=== PATIENT | male | born 1950 | race Caucasian/White ===

== ENCOUNTER 2020-08-20 16:01 | Inpatient (IN) ==
[2020-08-20] MEDS ORDERED: D5% in Water 1,000 ML IVC PRN (21:07)
[2020-08-20] MEDS ORDERED: *HR* Dextrose 50 % in Water (Vial) 50 ML VIAL IVP PRN (21:07)
[2020-08-20] MEDS ORDERED: Dextrose Gel 15 GM/37.5 ML TUBE PO PRN ×2 (21:07)
[2020-08-20] MEDS: Budesonide/Formoterol 160/4.5 1 PUFF INH IH SCH (21:49)
[2020-08-21] MEDS: Ascorbic Acid 500 MG TABLET PO SCH (08:58)
[2020-08-21] MEDS: Aspirin 325 MG TABLET PO SCH (08:58)
[2020-08-21] MEDS: *HR* Metformin 500 MG TABLET PO SCH ×2 (08:58→21:45)
[2020-08-21] MEDS: Vitamin E 200 UNIT (90MG) CAPSULE PO SCH (08:58)
[2020-08-21] MEDS: lisinopriL 20 MG TABLET PO SCH (08:58)
[2020-08-21] MEDS ORDERED: Dexamethasone 4 MG/ML VIAL PO SCH (09:00)
[2020-08-21] MEDS: (Pirfenidone [Esbriet] 801 MG) PO SCH ×3 (09:15→21:44)
[2020-08-21] MEDS: Budesonide/Formoterol 160/4.5 1 PUFF INH IH SCH ×2 (10:01→20:22)
[2020-08-21] MEDS: Tiotropium 10 INH DOSE IH SCH (10:01)
[2020-08-21 11:17] LABS: Hematocrit 38.2 % (37.5-50.1); Hemoglobin 12.7 g/dL (12.9-16.9); Mean Corpuscular HGB Conc 33.2 g/dL (31.6-35.5); Mean Corpuscular Hemoglobin 29.1 pg (28.0-33.3); Mean Corpuscular Volume 87.4 fL (83.0-100.0); Mean Platelet Volume 9.5 fL (9.4-12.4); Platelet Count 182 K/mcL (140-400); Red Blood Count 4.37 M/mcL (4.19-5.50); Red Cell Distribution Width 14.4 % (11.5-14.5); White Blood Count 5.7 K/mcL (4.3-11.1)
[2020-08-21 11:58] LABS: Alanine Aminotransferase 44 Units/L (7-52); Albumin 3.8 g/dL (3.5-5.7); Albumin/Globulin Ratio 1.2 (1.1-2.2); Alkaline Phosphatase 81 Units/L (34-104); Aspartate Amino Transferase 40 Units/L (13-39); BUN/Creatinine Ratio 26 (6-26); Bilirubin,Total 0.6 mg/dL (0.3-1.0); Blood Urea Nitrogen 30 mg/dL (8-23); Calcium 8.7 mg/dL (8.6-10.3); Carbon Dioxide 25 mEq/L (23-29); Chloride 96 mEq/L (98-107); Globulin 3.1 g/dL (2.4-3.5); Glucose 265 mg/dL (70-105); Magnesium 1.7 mg/dL (1.6-2.6); Osmolality,Calculated 291 (280-300); Potassium 3.7 mEq/L (3.5-5.1); Sodium 133 mEq/L (136-145); Total Protein 6.9 g/dL (6.4-8.9); eGFR For African Americans > 60 (> 60); eGFR For Non-African Americans > 60 (> 60)
[2020-08-21] MEDS: Insulin DETEMIR 100 UNIT/ML X5UNITS SUBQ SCH (18:20)
[2020-08-21 19:45] LABS: C-Reactive Protein 30 mg/L (Less than 10)
[2020-08-21 19:59] LABS: Ferritin 936 ng/mL (20-250)
[2020-08-21] MEDS ORDERED: D5% in Water 1,000 ML IVC PRN (22:45)
[2020-08-21] MEDS ORDERED: *HR* Dextrose 50 % in Water (Vial) 50 ML VIAL IVP PRN (22:45)
[2020-08-21] MEDS: levoFLOXacin 750 MG/150 ML 750 MG/150 ML BAG IVPB SCH (23:55)
[2020-08-22] MEDS ORDERED: Ondansetron 4 MG/2 ML VIAL IVP PRN (01:43)
[2020-08-22] MEDS: *HR* Enoxaparin 40 MG/0.4 ML SYRINGE SQ SCH (06:25)
[2020-08-22 06:40] LABS: Hematocrit 37.3 % (37.5-50.1); Hemoglobin 12.4 g/dL (12.9-16.9); Mean Corpuscular HGB Conc 33.2 g/dL (31.6-35.5); Mean Corpuscular Hemoglobin 28.8 pg (28.0-33.3); Mean Corpuscular Volume 86.7 fL (83.0-100.0); Mean Platelet Volume 9.6 fL (9.4-12.4); Platelet Count 182 K/mcL (140-400); Red Cell Distribution Width 14.4 % (11.5-14.5); White Blood Count 5.7 K/mcL (4.3-11.1)
[2020-08-22 06:53] LABS: BUN/Creatinine Ratio 35 (6-26); Blood Urea Nitrogen 35 mg/dL (8-23); Calcium 8.9 mg/dL (8.6-10.3); Carbon Dioxide 27 mEq/L (23-29); Chloride 97 mEq/L (98-107); Glucose 149 mg/dL (70-105); Magnesium 1.7 mg/dL (1.6-2.6); Osmolality,Calculated 289 (280-300); Potassium 3.4 mEq/L (3.5-5.1); Sodium 134 mEq/L (136-145); eGFR For African Americans > 60 (> 60); eGFR For Non-African Americans > 60 (> 60)
[2020-08-22 08:22] LABS: Ferritin 850 ng/mL (20-250)
[2020-08-22] MEDS: Vitamin E 200 UNIT (90MG) CAPSULE PO SCH (08:37)
[2020-08-22] MEDS: *HR* Metformin 500 MG TABLET PO SCH (08:37)
[2020-08-22] MEDS: Aspirin 325 MG TABLET PO SCH (08:37)
[2020-08-22] MEDS: lisinopriL 20 MG TABLET PO SCH (08:37)
[2020-08-22] MEDS: Ascorbic Acid 500 MG TABLET PO SCH (08:37)
[2020-08-22] MEDS: Dexamethasone Sodium Phos/PF 10 MG/ML VIAL IVP SCH (08:38)
[2020-08-22] MEDS: Furosemide 20 MG/2 ML VIAL IVP SCH ×2 (08:39→21:24)
[2020-08-22] MEDS: Insulin LISPRO 300 UNITS/3 ML VIAL SUBQ SCH ×4 (08:39→21:24)
[2020-08-22] MEDS: (Pirfenidone [Esbriet] 801 MG) PO SCH ×3 (08:41→21:26)
[2020-08-22 09:00] LABS: C-Reactive Protein 27 mg/L (Less than 10)
[2020-08-22] MEDS: Tiotropium 10 INH DOSE IH SCH (10:10)
[2020-08-22] MEDS: Budesonide/Formoterol 160/4.5 1 PUFF INH IH SCH ×2 (10:12→18:47)
[2020-08-22] MEDS: levoFLOXacin 750 MG/150 ML 750 MG/150 ML BAG IVPB SCH (17:00)
[2020-08-22] MEDS: Insulin DETEMIR 100 UNIT/ML X5UNITS SUBQ SCH (17:11)
[2020-08-23] MEDS: *HR* Enoxaparin 40 MG/0.4 ML SYRINGE SQ SCH (04:33)
[2020-08-23] MEDS: Tiotropium 10 INH DOSE IH SCH (09:31)
[2020-08-23] MEDS: Budesonide/Formoterol 160/4.5 1 PUFF INH IH SCH ×2 (09:31→20:36)
[2020-08-23] MEDS: Insulin LISPRO 300 UNITS/3 ML VIAL SUBQ SCH ×4 (09:59→21:05)
[2020-08-23] MEDS: Dexamethasone Sodium Phos/PF 10 MG/ML VIAL IVP SCH (10:00)
[2020-08-23] MEDS: Furosemide 20 MG/2 ML VIAL IVP SCH ×2 (10:00→21:05)
[2020-08-23] MEDS: Ascorbic Acid 500 MG TABLET PO SCH (10:00)
[2020-08-23] MEDS: Vitamin E 200 UNIT (90MG) CAPSULE PO SCH (10:00)
[2020-08-23] MEDS: Aspirin 325 MG TABLET PO SCH (10:00)
[2020-08-23] MEDS: lisinopriL 20 MG TABLET PO SCH (10:00)
[2020-08-23] MEDS: (Pirfenidone [Esbriet] 801 MG) PO SCH ×3 (10:02→21:06)
[2020-08-23] MEDS ORDERED: Dexamethasone 4 MG/ML VIAL IVP ONE (14:17)
[2020-08-23] MEDS: levoFLOXacin 750 MG/150 ML 750 MG/150 ML BAG IVPB SCH (17:56)
[2020-08-23] MEDS: Insulin DETEMIR 100 UNIT/ML X5UNITS SUBQ SCH (21:05)
[2020-08-24] MEDS: *HR* Enoxaparin 40 MG/0.4 ML SYRINGE SQ SCH (05:08)
[2020-08-24 05:25] LABS: Hematocrit 37.7 % (37.5-50.1); Hemoglobin 12.4 g/dL (12.9-16.9); Mean Corpuscular HGB Conc 32.9 g/dL (31.6-35.5); Mean Corpuscular Hemoglobin 28.8 pg (28.0-33.3); Mean Corpuscular Volume 87.5 fL (83.0-100.0); Mean Platelet Volume 9.6 fL (9.4-12.4); Platelet Count 227 K/mcL (140-400); Red Blood Count 4.31 M/mcL (4.19-5.50); Red Cell Distribution Width 14.1 % (11.5-14.5)
[2020-08-24 05:38] LABS: BUN/Creatinine Ratio 27 (6-26); Blood Urea Nitrogen 33 mg/dL (8-23); Calcium 8.8 mg/dL (8.6-10.3); Carbon Dioxide 32 mEq/L (23-29); Chloride 97 mEq/L (98-107); Glucose 115 mg/dL (70-105); Osmolality,Calculated 290 (280-300); Potassium 3.9 mEq/L (3.5-5.1); Sodium 136 mEq/L (136-145); eGFR For African Americans > 60 (> 60); eGFR For Non-African Americans 59 (> 60)
[2020-08-24] MEDS: Insulin LISPRO 300 UNITS/3 ML VIAL SUBQ SCH ×4 (07:51→20:27)
[2020-08-24] MEDS: Tiotropium 10 INH DOSE IH SCH (08:18)
[2020-08-24] MEDS: Budesonide/Formoterol 160/4.5 1 PUFF INH IH SCH ×2 (08:18→19:20)
[2020-08-24] MEDS ORDERED: Dexamethasone Sodium Phos/PF 10 MG/ML VIAL IVP SCH (09:00)
[2020-08-24] MEDS: lisinopriL 20 MG TABLET PO SCH (10:32)
[2020-08-24] MEDS: Ascorbic Acid 500 MG TABLET PO SCH (10:32)
[2020-08-24] MEDS: Aspirin 325 MG TABLET PO SCH (10:32)
[2020-08-24] MEDS: Vitamin E 200 UNIT (90MG) CAPSULE PO SCH (10:32)
[2020-08-24] MEDS: Furosemide 20 MG/2 ML VIAL IVP SCH (10:33)
[2020-08-24] MEDS: (Pirfenidone [Esbriet] 801 MG) PO SCH ×3 (10:35→20:32)
[2020-08-24] MEDS: Ipratropium 1 PUFF INHALER IH SCH ×4 (13:29→23:09)
[2020-08-24 13:45] LABS: C-Reactive Protein 32 mg/L (Less than 10)
[2020-08-24 14:04] LABS: Ferritin 719 ng/mL (20-250)
[2020-08-24] MEDS: levoFLOXacin 750 MG/150 ML 750 MG/150 ML BAG IVPB SCH (17:46)
[2020-08-24] MEDS: Insulin DETEMIR 100 UNIT/ML X5UNITS SUBQ SCH (17:46)
[2020-08-24] MEDS: Furosemide 20 MG TABLET PO SCH (20:32)
[2020-08-25] MEDS: Ipratropium 1 PUFF INHALER IH SCH ×5 (03:47→20:08)
[2020-08-25] MEDS: *HR* Enoxaparin 40 MG/0.4 ML SYRINGE SQ SCH (05:15)
[2020-08-25] MEDS: Tiotropium 10 INH DOSE IH SCH (07:42)
[2020-08-25] MEDS: Budesonide/Formoterol 160/4.5 1 PUFF INH IH SCH ×2 (07:42→20:07)
[2020-08-25] MEDS: Insulin LISPRO 300 UNITS/3 ML VIAL SUBQ SCH ×4 (08:23→21:01)
[2020-08-25] MEDS: dexAMETHasone 4 MG TABLET PO SCH (08:31)
[2020-08-25] MEDS: Aspirin 325 MG TABLET PO SCH (08:31)
[2020-08-25] MEDS: lisinopriL 20 MG TABLET PO SCH (08:32)
[2020-08-25] MEDS: (Pirfenidone [Esbriet] 801 MG) PO SCH ×3 (08:32→21:02)
[2020-08-25] MEDS: Ascorbic Acid 500 MG TABLET PO SCH (08:32)
[2020-08-25] MEDS: levoFLOXacin 750 MG TABLET PO SCH (08:32)
[2020-08-25] MEDS: Furosemide 20 MG TABLET PO SCH ×2 (08:32→17:03)
[2020-08-25] MEDS: Vitamin E 200 UNIT (90MG) CAPSULE PO SCH (08:32)
[2020-08-25] MEDS: Insulin DETEMIR 100 UNIT/ML X5UNITS SUBQ SCH (17:03)
[2020-08-26] MEDS: Ipratropium 1 PUFF INHALER IH SCH ×3 (00:07→07:46)
[2020-08-26] MEDS: *HR* Enoxaparin 40 MG/0.4 ML SYRINGE SQ SCH (05:56)
[2020-08-26 06:58] VITALS: BP 123/73
[2020-08-26] MEDS: Budesonide/Formoterol 160/4.5 1 PUFF INH IH SCH (07:44)
[2020-08-26] MEDS: Tiotropium 10 INH DOSE IH SCH (07:45)
[2020-08-26] MEDS: Insulin LISPRO 300 UNITS/3 ML VIAL SUBQ SCH (08:25)
[2020-08-26] MEDS: levoFLOXacin 750 MG TABLET PO SCH (08:26)
[2020-08-26] MEDS: dexAMETHasone 4 MG TABLET PO SCH (08:26)
[2020-08-26] MEDS: Vitamin E 200 UNIT (90MG) CAPSULE PO SCH (08:26)
[2020-08-26] MEDS: lisinopriL 20 MG TABLET PO SCH (08:26)
[2020-08-26] MEDS: Aspirin 325 MG TABLET PO SCH (08:26)
[2020-08-26] MEDS: (Pirfenidone [Esbriet] 801 MG) PO SCH (08:26)
[2020-08-26] MEDS: Furosemide 20 MG TABLET PO SCH (08:26)
[2020-08-26] MEDS: Ascorbic Acid 500 MG TABLET PO SCH (08:26)
== END 2020-08-26 12:47 | disposition home health service (06) | DRG 177 ==
LOC: INPGRE 19:35
PROVIDERS: ADMIT Family Medicine; ATTEND Family Medicine